=== PATIENT | female | born 1980 | race Caucasian/White ===

== ENCOUNTER 2016-03-19 14:39 | Emergency (ER) | payer MEDICAID, OTHER ==
[~2016-03-19] VITALS: Wt 63.5 kg
[2016-03-19] MEDS ORDERED: HYDROCODONE/APAP (5/325) TAB PO ONE (15:30)
--- NOTE | 2016-03-19 15:58 | RADRPT ---
PROCEDURE: XR Right Ankle 3 Views. CLINICAL INDICATION: Right ankle pain TECHNIQUE: AP, oblique and lateral views of the right ankle was performed. COMPARISON: None. FINDINGS: The osseous structures are intact. No destructive bony lesions are observed. Interosseous spaces a ppear normal. The soft tissues are unremarkable. IMPRESSION: Unremarkable right ankle. If there is high clinical suspicion for traumatic injury, further evaluation with CT should be consi dered. If further characterization is needed CT or MRI could be helpful. RPTAT: AA .Stuart Brooks MD, Date Time Electronically viewed and signed by .Stuart Brooks MD, on 03/19/2016 15:58 .P/
[2016-03-19] MEDS ORDERED: HYDR-906 PO (16:38)
[2016-03-19] MEDS ORDERED: IBUP-1542 PO (16:38)
--- NOTE | 2016-03-19 16:47 | ERD ---
ER Documentation Chief Complaint Date/Time DATE: 03/19/16 TIME: 16:45 Chief Complaint right ankle pain from rolling foot yesterday. no deformity HPI This is a 36-year-old female that presents to the ER with right ankle pain after she rolled it yesterday. Patient denies any numbness or tingling. Pain is constant and throbbing in quality it is worse whenever she bears weight on her ankle. Patient denies any fevers or chills. She tried taking ibuprofen for the pain however did not help. ROS 12 point review of systems was done, all negative except per HPI. Medications Home Meds Active Scripts Hydrocodone/Acetaminophen ([place] 5-325 Tablet) 1 Each Tablet, 1 TAB PO Q6H Y for PAIN, #20 TAB Prov:FRANCISCO MELVIN 03/19/16 Ibuprofen* (Motrin*) 600 Mg Tab, 600 MG PO Q6, #30 TAB Prov:FRANCISCO MELVIN C 03/19/16 PMhx/Soc History of Surgery: Yes (breast implants) Anesthesia Reaction: No Hx Neurological Disorder: No Hx Respiratory Disorders: No Hx Cardiac Disorders: No Hx Psychiatric Problems: No Hx Miscellaneous Medical Probl: No Hx Alcohol Use: No Hx Substance Use: No Hx Tobacco Use: No Smoking Status: Never smoker Physical Exam Vitals Vital Signs Date Time Temp Pulse Resp B/P Pulse Ox O2 Delivery O2 Flow Rate FiO2 03/19/16 14:43 98.6 92 20 127/71 98 Physical Exam GENERAL: The patient is well developed and appropriate for usual state of health , in no apparent distress. HEENT: Atraumatic. CHEST: Clear to auscultation bilaterally. There are no rales, wheezes or rhonchi. HEART: Regular rate and rhythm. No murmurs, clicks, rubs or gallops. EXTREMITIES: Right ankle: ttp at the lateral malleolus. +2 pedal pulses. negative tarsal twist test. negative squeeze test. NEURO: Alert and oriented. Results 24 hrs Current Medications Medications (Trade) Dose Ordered Sig/Stephen Route PRN Reason Start Time Stop Time Status Last Admin Dose Admin Acetaminophen/ Hydrocodone Bitart ([place] (5/325)) 1 tab ONCE ONCE PO 03/19/16 15:30 03/19/16 15:31 DC 03/19/16 15:36 Procedures/MDM This is a 36-year-old female presents to the ER after she rolled her right ankle yesterday. At this time there is no evidence of fracture dislocation. Patient is neurovascularly intact I doubt deep space infection or any sort of limb compromise. She was put in an [place] wrap. She will be given crutches. She will be sent home with ibuprofen with [place]. She needs to follow-up with her primary care doctor within 1-2 days return to ER sooner if symptoms worsen. My medical decision making shared with the patient she understands and agrees with plan. Departure Diagnosis: Primary Impression: Ankle sprain Condition: Stable Patient Instructions: Self-Care for Strains and Sprains Additional Instructions: Llame al doctor MAANA y nakia darian GINA PARA DENTRO DE 1-2 MAYER.Dgale a la secretaria que nosotros le instruimos hacer esta gina.Avise o llame si hendrix condicin se empeora antes de la gina. Regresa aqui si peor o no mejor. FRANCISCO MELVIN Mar 19, 2016 16:47
== END 2016-03-19 17:24 | disposition home or self-care (01) ==
LOC: FTE 14:39
DX: S93.401A Sprain of unspecified ligament of right ankle, initial encounter (principal); X50.1XXA Overexertion from prolonged static or awkward postures, initial encounter; Y92.9 Unspecified place or not applicable
CPT/HCPCS: 73610; Z7610